=== PATIENT | male | born 1955 ===

== ENCOUNTER 2018-09-10 10:22 | Emergency (ER) | payer OTHER ==
[2018-09-10 10:32] VITALS: BMI 25.1
[2018-09-10] MEDS ORDERED: Sodium Chloride 0.9% 1,000 ML IV SCH (11:00)
[2018-09-10 11:20] LABS: BASO # 0.1 K/uL (0.0-0.2); BASO % 0.8 % (0.0-2.0); EOS # 0.4 K/uL (0.0-0.7); EOS % 4.8 % (0.0-4.0); HEMOGLOBIN 16.6 g/dL (12.0-18.0); LYMPH # 2.7 K/uL (1.0-4.3); LYMPH % 31.2 % (20.0-40.0); MEAN CELL VOLUME 89.8 fL (80.0-94.0); MEAN CORPUSCULAR HEMOGLOBIN 30.2 pg (27.0-31.0); MEAN CORPUSCULAR HGB CONC 33.6 g/dL (33.0-37.0); MEAN PLATELET VOLUME 8.5 fL (7.2-11.7); MONO # 0.6 K/uL (0.0-0.8); MONO % 7.1 % (0.0-10.0); NEUT # 4.8 K/uL (1.8-7.0); NEUT % 56.1 % (50.0-75.0); NRBC % 0.1 % (0.0-2.0); RBC 5.5 Mil/uL (4.40-5.90); RED CELL DISTRIBUTION WIDTH 13.9 % (11.5-14.5); WHITE BLOOD COUNT 8.5 K/uL (4.8-10.8)
[2018-09-10] MEDS ORDERED: Sodium Chloride 0.9% 1,000 ML ONE ×2 (11:23→11:26)
[2018-09-10 11:36] LABS: ALB/GLOB RATIO 1.5 (1.0-2.1); ALBUMIN 4.2 g/dL (3.5-5.0); ALT/SGPT 23 U/L (21-72); AST/SGOT 16 U/L (17-59); BLOOD UREA NITROGEN 17 mg/dL (9-20); CALCIUM 9.8 mg/dl (8.6-10.4); GFR NON-AFRICAN AMERICAN > 60; LIPASE 70 U/L (23-300)
[2018-09-10] MEDS ORDERED: Iodixanol 320 MG/ML 100 ML BOTTLE IV ONE (12:01)
[2018-09-10 12:49] VITALS: RESP 17; O2SAT 97
--- NOTE | 2018-09-10 13:22 | CT ---
Date of service: 09/10/2018 PROCEDURE: CT Abdomen and Pelvis with contrast HISTORY: R groin pain with h/o hernia repair - r/o obs. COMPARISON: None. TECHNIQUE: Contrast dose: 100 mL Visipaque 320 Radiation dose: Total exam DLP = 597.35 mGy-cm. This CT exam was performed using one or more of the following dose reduction techniques: Automated exposure control, adjustment of the mA and/or kV according to patient size, and/or use of iterative reconstruction technique. FINDINGS: LOWER THORAX: Unremarkable. LIVER: Mild hepatic steatosis. 7 mm right hepatic lobe cyst. No gross lesion or ductal dilatation. GALLBLADDER AND BILE DUCTS: Unremarkable. PANCREAS: Unremarkable. No gross lesion or ductal dilatation. SPLEEN: Unremarkable. ADRENALS: Unremarkable. No mass. KIDNEYS AND URETERS: 7 mm left interpolar cyst. No hydronephrosis. No solid mass. VASCULATURE: Unremarkable. No aortic aneurysm. Aortic atherosclerotic calcification and mural plaque present. BOWEL: Colonic diverticulosis. No obstruction. No gross mural thickening. APPENDIX: Normal appendix. PERITONEUM: Nonspecific inflammatory change adjacent to origin of right inguinal hernia sac. Large fat and nonobstructed bowel containing right inguinal hernia. Tiny fat and nonobstructive bowel containing umbilical hernia. No free fluid. No free air. LYMPH NODES: Unremarkable. No enlarged lymph nodes. BLADDER: Unremarkable. REPRODUCTIVE: Unremarkable. BONES: No acute fracture. L5-S1 degenerative changes. OTHER FINDINGS: None. IMPRESSION: Large fat and nonobstructive bowel containing right inguinal hernia. Nonspecific inflammatory changes adjacent to origin of right inguinal hernia sac. Tiny fat and nonobstructed bowel containing umbilical hernia. Additional findings as above.
[2018-09-10 14:04] VITALS: BP 148/92; PULSE 73; TEMP 98.6
--- NOTE | 2018-09-10 14:23 | C.PDOC ---
History Of Present Illness 63 y/o male with history of Hernia repair 10 years ago in [place] presents to ED with c/o right hernial groin bulge for 6 months. Patient denies fever, chills, vomiting, blood in stool or any other complaints at this time. Chief Complaint (Nursing): Groin Pain History Per: Patient History/Exam Limitations: no limitations Onset/Duration Of Symptoms: Days Current Symptoms Are (Timing): Still Present Past Medical History Reviewed: Historical Data, Nursing Documentation, Vital Signs Vital Signs: Last Vital Signs Temp 98.6 F 09/10/18 14:03 Pulse 73 09/10/18 14:03 Resp 17 09/10/18 14:03 BP 148/92 H 09/10/18 14:03 Pulse Ox 97 09/10/18 14:03 - Medical History PMH: No Chronic Diseases Surgical History: No Surg Hx Family History: States: No Known Family Hx - Social History Hx Alcohol Use: No Hx Substance Use: No - Immunization History Hx Tetanus Toxoid Vaccination: No Hx Influenza Vaccination: No Hx Pneumococcal Vaccination: No Review Of Systems Constitutional: Negative for: Fever, Chills Gastrointestinal: Negative for: Nausea, Vomiting, Abdominal Pain, Hematochezia Genitourinary: Positive for: Other (groin hernia ). Negative for: Dysuria Skin: Negative for: Rash Physical Exam - Physical Exam Appears: Non-toxic, No Acute Distress Skin: Warm, Dry, No Rash Head: Atraumatic, Normacephalic Eye(s): bilateral: Normal Inspection Oral Mucosa: Moist Neck: Supple Cardiovascular: Rhythm Regular Respiratory: Normal Breath Sounds, No Rales, No Rhonchi, No Wheezing Gastrointestinal/Abdominal: Bowel Sounds, Soft, No Tenderness, No Guarding, No Rebound Back: No CVA Tenderness Male Genital: Other (Right inguinal hernia) Neurological/Psych: Oriented x3, Normal Speech, Normal Cognition ED Course And Treatment - Laboratory Results Result Diagrams: 09/10/18 11:17 09/10/18 11:17 O2 Sat by Pulse Oximetry: 97 (RA) Pulse Ox Interpretation: Normal Disposition - Disposition Referrals: [facility] [Outside] [facility] [Outside] Disposition: HOME/ ROUTINE Disposition Time: 13:25 Condition: GOOD Additional Instructions: SUSHMA TREJO, thank you for letting us take care of you today. Your provider was Duane Howard DO and you were treated for HERNIA. The emergency medical care you received today was directed at your acute symptoms. If you were prescribed any medication, please fill it and take as directed. It may take several days for your symptoms to resolve. Return to the Emergency Department if your symptoms worsen, do not improve, or if you have any other problems. Please contact your doctor or call one of the physicians/clinics you have been referred to that are listed on the Patient Visit Information form that is included in your discharge packet. Bring any paperwork you were given at discharge with you along with any medications you are taking to your follow up visit. Our treatment cannot replace ongoing medical care by a primary care provider outside of the emergency department. Thank you for allowing the [facility] team to be part of your care today. Take medication for pain as directed. Use scrotal support while awake. Follow up with the clinic this week for re-evaluation and further management. Prescriptions: Ibuprofen [Motrin] 600 mg PO Q6 PRN #20 tab PRN Reason: Pain, Moderate (4-7) Instructions: Groin Hernia (DC) Forms: [facility] (Romansh) - Clinical Impression Clinical Impression: Inguinal hernia - Scribe Statement The provider has reviewed the documentation as recorded by the Scribe Paul Pollack All medical record entries made by the Scribe were at my direction and personally dictated by me. I have reviewed the chart and agree that the record accurately reflects my personal performance of the history, physical exam, medical decision making, and the department course for this patient. I have also personally directed, reviewed, and agree with the discharge instructions and disposition.
== END 2018-09-10 14:04 | disposition home or self-care (01) ==
LOC: C.ER 10:22
DX: K40.90 Unilateral inguinal hernia, without obstruction or gangrene, not specified as recurrent (principal)
CPT/HCPCS: 74177; 80053; 83690; 85025; 96360; 96361; 99285; J7030; Q9967

== ENCOUNTER 2018-09-16 22:22 | Emergency (ER) | payer OTHER ==
[2018-09-16 22:24] VITALS: BMI 25.1
[2018-09-16] MEDS ORDERED: DiphenhydrAMINE 50 mg/ml Inj ONE (22:40)
[2018-09-16] MEDS ORDERED: DiphenhydrAMINE 50 mg/ml Inj IVP STA (22:48)
[2018-09-16] MEDS ORDERED: MethylPREDNISolone 40 mg Vial IVP STA (22:48)
--- NOTE | 2018-09-17 00:08 | C.PDOC ---
History Of Present Illness 63 year old male presents to the ED c/o itchy rash that started a few hours ago. Patient reports he ate shrimp today at 15:00 after which the symptoms started. Patient reports he tried drinking some milk but symptoms did not resolve. Patient denies similar reactions in the past, new medications, difficulty breathing, difficulty swallowing, lip swelling, tongue swelling. Time Seen by Provider: 09/16/18 22:35 Chief Complaint (Nursing): Allergic Reaction History Per: Patient History/Exam Limitations: no limitations Onset/Duration Of Symptoms: Hrs (15:00) Current Symptoms Are (Timing): Still Present Context: Food Possible Cause: Food Associated Symptoms: Skin Rash Home/EMS Treatment: Other (Milk) Recent travel outside of the [place]: No Additional History Per: Patient Past Medical History Reviewed: Historical Data, Nursing Documentation, Vital Signs Vital Signs: Last Vital Signs Temp 97.6 F 09/16/18 22:36 Pulse 93 H 09/16/18 22:36 Resp 22 09/16/18 22:36 BP 151/99 H 09/16/18 22:36 Pulse Ox 96 09/16/18 22:36 - Medical History Other PMH: hernia Surgical History: No Surg Hx Family History: States: Unknown Family Hx - Social History Hx Alcohol Use: No Hx Substance Use: No - Immunization History Hx Tetanus Toxoid Vaccination: No Hx Influenza Vaccination: No Hx Pneumococcal Vaccination: No Review Of Systems Constitutional: Negative for: Fever, Chills ENT: Negative for: Nose Discharge, Nose Congestion, Mouth Swelling, Throat Swelling Cardiovascular: Negative for: Chest Pain Respiratory: Negative for: Cough, Shortness of Breath Gastrointestinal: Negative for: Nausea, Vomiting Skin: Positive for: Rash Physical Exam - Physical Exam Appears: Non-toxic, No Acute Distress Skin: Warm, Dry, Rash (diffuse urticaria) Head: Atraumatic, Normacephalic Eye(s): bilateral: Normal Inspection, EOMI Oral Mucosa: Moist Tongue: No Swelling Lips: No Swelling Throat: Normal, No Erythema, No Exudate Neck: Normal ROM, Supple Chest: Symmetrical Cardiovascular: Rhythm Regular Respiratory: Normal Breath Sounds, No Rales, No Rhonchi, No Wheezing Extremity: Normal ROM, No Tenderness, No Swelling Neurological/Psych: Oriented x3, Normal Speech, Normal Cognition Gait: Steady ED Course And Treatment O2 Sat by Pulse Oximetry: 96 (ON RA) Pulse Ox Interpretation: Normal Progress Note: Plan: - Benadryl 50 mg IVP. - Pepcid 20 mg IVP. - Solumderol 125 mg IVP. On re-evaluation, pt notes the rash improves but has not resolved. Requests to stay until his next dose of benadryl as he does not have any at home. Benadryl 50 mg ordered. On re-evaluation, Patient is resting comfortably, tolerating PO, has no shortness of breath, has no intra-oral swelling, no stridor. RAsh has improved. Patient was advised to avoid potential allergens, and to follow up with physician in 1-2 days. Disposition - Disposition Disposition: HOME/ ROUTINE Disposition Time: 00:05 Condition: STABLE Additional Instructions: Vaya a gorman mdico o la clnica en 2-5 krishna sin falta, para mas evaluacin. [place] los medicamentos chelsea indicado. Volver a la arvin de emergencia en cualquier momento si los sntomas persisten o empeoran. Prescriptions: DiphenhydrAMINE [Benadryl] 25 mg PO Q6 #20 cap predniSONE [Prednisone] 40 mg PO DAILY #8 tab Instructions: Hives (DC) Forms: [employer] (Vietnamese) Print Language: MAORI - Clinical Impression Clinical Impression: Urticaria - PA / MATERIAL CLERK / Resident Statement MD/DO has reviewed & agrees with the documentation as recorded. - Scribe Statement The provider has reviewed the documentation as recorded by the Scribe Akin Pennington All medical record entries made by the Scribe were at my direction and personally dictated by me. I have reviewed the chart and agree that the record accurately reflects my personal performance of the history, physical exam, medical decision making, and the department course for this patient. I have also personally directed, reviewed, and agree with the discharge instructions and disposition.
[2018-09-17] MEDS ORDERED: Sodium Chloride 0.9% 1,000 ML IV ONE (00:48)
[2018-09-17] MEDS ORDERED: DiphenhydrAMINE 50 mg/ml Inj IVP STA (02:03)
[2018-09-17] MEDS ORDERED: DiphenhydrAMINE 50 mg/ml Inj ONE (02:16)
[2018-09-17 04:41] VITALS: BP 130/84; PULSE 71; RESP 18; TEMP 97.7
[2018-09-17 06:56] VITALS: O2SAT 96
== END 2018-09-17 04:45 | disposition home or self-care (01) ==
LOC: C.ER 22:22
DX: L50.9 Urticaria, unspecified (principal)
CPT/HCPCS: 96361; 96374; 96375; 96376; 99285; J1200; J2920; J7030

== ENCOUNTER 2018-11-22 11:22 | Inpatient (IN) | payer OTHER ==
[2018-11-22 11:48] VITALS: BMI 25.8
--- NOTE | 2018-11-22 12:28 | C.PDOC ---
History Of Present Illness SUICIDAL, DEPRESSION WORSENING. HO ETOH, COCAINE ABUSE LAST USE 1-2 DAYS AGO. STATES PT IS STEALING AND NOW AT RISK FOR EVICTION. EXAM NAD PSYCH CALM COOPERATIVE +SI, DEPRESSION. NO ACUTE INTOX, PSYCHOSIS REMAINDER NEG <Bisi Curtis - Last Filed: 11/22/18 12:49> <Bisi Curtis - Last Filed: 11/22/18 12:49> <Marissa Larson - Last Filed: 11/22/18 14:19> Time Seen by Provider: 11/22/18 12:04 Chief Complaint (Nursing): Psychiatric Evaluation Past Medical History Vital Signs: Last Vital Signs Temp 98.0 F 11/22/18 11:48 Pulse 87 11/22/18 11:48 Resp 18 11/22/18 11:48 BP 153/99 H 11/22/18 11:48 Pulse Ox 96 11/22/18 11:48 - Medical History PMH: Arthritis, Back Problems, Gastritis Family History: States: Unknown Family Hx - Social History Hx Alcohol Use: Yes Hx Substance Use: Yes - Immunization History Hx Tetanus Toxoid Vaccination: No Hx Influenza Vaccination: No Hx Pneumococcal Vaccination: No <Bisi Curtis - Last Filed: 11/22/18 12:49> Vital Signs: Last Vital Signs Temp 98.0 F 11/22/18 11:48 Pulse 87 11/22/18 11:48 Resp 18 11/22/18 11:48 BP 153/99 H 11/22/18 11:48 Pulse Ox 96 11/22/18 12:50 <Marissa Larson - Last Filed: 11/22/18 14:19> ED Course And Treatment O2 Sat by Pulse Oximetry: 96 <Bisi Curtis - Last Filed: 11/22/18 12:49> - Laboratory Results Result Diagrams: 11/22/18 12:46 11/22/18 12:46 Lab Results: Total Bilirubin 0.3 mg/dL (0.2-1.3) 11/22/18 12:46 AST 25 U/L (17-59) 11/22/18 12:46 ALT 27 U/L (21-72) 11/22/18 12:46 Alkaline Phosphatase 79 U/L (38-126) 11/22/18 12:46 Total Protein 7.1 g/dL (6.3-8.3) 11/22/18 12:46 Albumin 4.4 g/dL (3.5-5.0) 11/22/18 12:46 Globulin 2.6 gm/dL (2.2-3.9) 11/22/18 12:46 Albumin/Globulin Ratio 1.7 (1.0-2.1) 11/22/18 12:46 Urine Color Yellow (YELLOW) 11/22/18 12:46 Urine Clarity Hazy (Clear) 11/22/18 12:46 Urine pH 7.0 (5.0-8.0) 11/22/18 12:46 Ur Specific [place] 1.019 (1.003-1.030) 11/22/18 12:46 Urine Protein Negative mg/dL (NEGATIVE) 11/22/18 12:46 Urine Glucose (UA) Normal mg/dL (Normal) 11/22/18 12:46 Urine Ketones Negative mg/dL (NEGATIVE) 11/22/18 12:46 Urine Blood Negative (NEGATIVE) 11/22/18 12:46 Urine Nitrate Negative (NEGATIVE) 11/22/18 12:46 Urine Bilirubin Negative (NEGATIVE) 11/22/18 12:46 Urine Urobilinogen Normal mg/dL (0.2-1.0) 11/22/18 12:46 Ur Leukocyte Esterase Neg Cem/uL (Negative) 11/22/18 12:46 Urine WBC (Auto) 4 /hpf (0-5) 11/22/18 12:46 Amorphous Sediment Moderate /ul (<OCC) H 11/22/18 12:46 Urine Bacteria Rare (<OCC) 11/22/18 12:46 <Marissa Larson - Last Filed: 11/22/18 14:19> Progress - Re-Evaluation Re-evaluation Note: 11/22/18 12:49 CRISIS NOTIFIED - Data Reviewed Data Reviewed: Lab, Old records <Bisi Curtis - Last Filed: 11/22/18 12:49> Medical Decision Making 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 Alcaraz. <Marissa Larson - Last Filed: 11/22/18 14:19> Disposition Counseled Patient/Family Regarding: Diagnosis - Disposition Disposition Time: 13:00 <Bisi Curtis - Last Filed: 11/22/18 12:49> - Disposition Disposition Time: 14:17 <Marissa Larson - Last Filed: 11/22/18 14:19> - Disposition Condition: STABLE Forms: [facility] (Kyrgyz) - Clinical Impression Clinical Impression: Polysubstance abuse, Suicidal ideation, Depression, Anxiety Physician Patient Turnover Patient Signed Over To: Marissa Larson Handoff Comments: FU LABS, DISPO <Bisi Curtis - Last Filed: 11/22/18 12:49>
[2018-11-22 12:56] LABS: BASO # 0.1 K/uL (0.0-0.2); BASO % 1.5 % (0.0-2.0); EOS # 0.3 K/uL (0.0-0.7); EOS % 2.7 % (0.0-4.0); HEMOGLOBIN 16.1 g/dL (12.0-18.0); LYMPH # 1.9 K/uL (1.0-4.3); LYMPH % 20.1 % (20.0-40.0); MEAN CELL VOLUME 91.7 fL (80.0-94.0); MEAN CORPUSCULAR HEMOGLOBIN 30.9 pg (27.0-31.0); MEAN CORPUSCULAR HGB CONC 33.7 g/dL (33.0-37.0); MEAN PLATELET VOLUME 8.5 fL (7.2-11.7); MONO # 0.7 K/uL (0.0-0.8); MONO % 7.2 % (0.0-10.0); NEUT # 6.4 K/uL (1.8-7.0); NEUT % 68.5 % (50.0-75.0); NRBC % 0.1 % (0.0-2.0); RBC 5.21 Mil/uL (4.40-5.90); RED CELL DISTRIBUTION WIDTH 14.5 % (11.5-14.5); WHITE BLOOD COUNT 9.3 K/uL (4.8-10.8)
[2018-11-22 13:02] LABS: URINE AMORPHOUS SEDIMENT MODERATE /ul (<OCC); URINE BACTERIA RARE (<OCC); URINE BILIRUBIN NEGATIVE (NEGATIVE); URINE BLOOD NEGATIVE (NEGATIVE); URINE CLARITY Hazy (Clear); URINE COLOR Yellow (YELLOW); URINE GLUCOSE (UA) NORMAL (Normal); URINE LEUKOCYTE ESTERASE NEG Leu/uL (Negative); URINE PROTEIN NEGATIVE (NEGATIVE); URINE UROBILINOGEN NORMAL mg/dL (0.2-1.0)
[2018-11-22 13:31] LABS: ALB/GLOB RATIO 1.7 (1.0-2.1); ALBUMIN 4.4 g/dL (3.5-5.0); ALT/SGPT 27 U/L (21-72); AST/SGOT 25 U/L (17-59); BLOOD UREA NITROGEN 13 mg/dL (9-20); CALCIUM 9.3 mg/dl (8.6-10.4); GFR NON-AFRICAN AMERICAN > 60
[2018-11-22 13:41] LABS: BARBITURATES, UR NEGATIVE (NEGATIVE); BENZODIAZEPINES, UR NEGATIVE (NEGATIVE); OPIATES, UR NEGATIVE (NEGATIVE); PHENCYCLIDINE, UR NEGATIVE (NEGATIVE)
--- NOTE | 2018-11-22 20:52 | PCM.BM ---
<Raymond Real - Last Filed: 11/22/18 20:50> Treatment Plan Problems - Problems identified on initial assessmt Depression Date Initiated: 11/22/18 Time Initiated: 20:50 Assessment reference: NA Status: Active Substance Date Initiated: 11/22/18 Time Initiated: 20:51 Assessment reference: NA Status: Active Treatment assets and liabiliti Patient Assests: cooperative, self-reliant, ADL independent, negotiates basic needs, financial stabiity, cognitively intact Patient Liabilities: substance abuse (Alcohol and cocaine abuse), medical problems (Gastritis, Hernia), other - Milieu Protocol Maintain good personal hygiene: daily Encourage regular showers, daily Remind patient to perform daily oral care, every shift Assist patient to perform ADL's Conduct patient checks and document Observation sheet: Q15 minutes (For safety) Maintain personal safety: every shift Educate patient to report safety concerns to staff, every shift Monitor environment for contraband/sharps Medication safety: Monitor for expected outcome, potential side effects: every shift, Assess barriers to learning: every shift, Assess readiness for medication education: every shift <Shagufta Hansen - Last Filed: 11/23/18 12:05> Family Contact Family involvement: Family/SO is involved Family contact: Patient declines to allow family contact at present - Goals for Treatment Patient goals for treatment: "I need treatment" Discharge/Continuing Care - Education Needs Education Needs: Patient Medication, Patient Coping Skills - Discharge Discharge Criteria: Tolerates medication w/o severe side effects, No longer exhibiting s/s of withdrawal Discharge to:: Home, With Family - Treatment Team Participation Discussed with Family/SO: No Was Patient/Family/SO present at Treatment Team Meeting: Yes <Tita Alcaraz - Last Filed: 11/27/18 15:05> - Diagnosis (1) Depression Status: Acute Interventions: 11/27/18 15:03 * Assess/adjust medications daily and /or as needed * See patient on an individual basis 7x/week to assess symptoms of depression * Monitor for side effects & effectiveness of medications * (2) Cocaine use disorder, severe, dependence Status: Acute Interventions: 11/27/18 15:05 * Assess 7x/week regarding severity of withdrawal * Educate regarding risks, benefits, side effects and alternatives of medications * Use Motivational Interviewing for abstinence * Use CBT for relapse prevention * Medication management for withdrawal symptoms * Encourage medication assisted treatment *
--- NOTE | 2018-11-23 10:59 | PCM.PSYCH ---
Initial Psychiatric Evaluation - Initial Psychiatric Evaluation Type of Admission: Voluntary Legal Status: Capacity Chief Complaint (in patient's own words): I was feeling depressed and suicidal History of Present Illness and Precipitating Events: 63 year old male, who is , unemployed and living with his , presents to the ED for depressed mood and suicidal thoughts with plan to "jump into a hole". Pt states he came to the hospital because he was becoming increasingly depressed from his drinking problem. Pt states he recently retired from work and is at home more often. Pt states since he is home more often, he often fights with his who also has a psychiatric illness. Pt states he starting drinking more due to these stressors at home and has ultimately led to exacerbation of his depressive symptoms. Yesterday he developed suicidal ideation with plan to jump into the hole, became increasingly concerned, and escorted him to the hospital to get help. Pt states that he has been drinking about 6, 12oz beers a day and has used a small amount of cocaine recently. Pt reports having a history of inpatient psychiatric hospitalizations in the early in [facility], but has not followed up with a psychiatrist for many years. Pt reports having two suicide attempts in the and early , via cutting. Pt states his depression is worse when drinking and that he wants help. Pt reports having alcohol withdrawal symptoms 3 days ago, consisting of nausea, vomiting, sweating, and chills, but does not report any of those symptoms currently. Pt reports depressed mood, and reports feelings of hopelessness and helplessness. He also reports poor energy, isolation, anhedonia. However he denies any auditory or visual hallucinations or any paranoia. He denies any irritability or any agitation. Past Psychiatric Hx: Depression, Alcohol Abuse, cocaine abuse PMH: GI Ulcers, 3 Hernias (x2 inguinal, x1 ventral), chronic back pain Allergies: seafood, denies allergy to any medications Current Medications: Active Medications Generic Name Dose Route Start Last Admin Trade Name Freq PRN Reason Stop Dose Admin Acetaminophen 650 mg 11/22/18 20:59 Tylenol 325mg Tab PO Q6 PRN Pain, moderate (4-7) Influenza Virus Vaccine 60 mcg 11/25/18 10:00 Flucelvax Quad 4400-1848 Syr IM 11/25/18 10:01 .ONCE ONE Lorazepam 0.5 mg 11/22/18 20:59 Ativan PO Q8 PRN Anxiety Pneumococcal Polyvalent Vaccine 0.5 ml 11/25/18 10:00 Pneumovax 23 Vaccine IM 11/25/18 10:01 .ONCE ONE Sertraline HCl 25 mg 11/23/18 10:00 11/23/18 10:05 Zoloft PO 25 mg DAILY CRISTHIAN Administration Trazodone HCl 50 mg 11/22/18 20:59 11/22/18 21:35 Desyrel PO 50 mg HS PRN Administration Insomnia Past Psychiatric History - Past Psychiatric History Previous Treatment History: None Pertinent Medical Hx (Current Medical&Sleep Prob, Allergies): Allergies Allergy/AdvReac Type Severity Reaction Status Date / Time No Known Allergies Allergy Verified 11/22/18 11:48 No Known Home Med 11/22/18 Review of Systems - Review of Systems All systems: reviewed and no additional remarkable complaints except - Psychiatric Psychiatric: Anxiety, Irritability, Suicidal Ideation Mental Status Examination - Personal Presentation Personal Presentation: Looks stated age - Affect Affect: Constricted, Depressed - Motor Activity Motor Activity: Calm - Reliability in Providing Information Reliability in Providing Information: Fair - Speech Speech: Organized - Mood Mood: Depressed, Anxious - Formal Thought Process Formal Thought Process: No Impairment - Obsessions/Compulsions Obsessions: No Compulsions: No - Cognitive Functions Orientation: Person, Place, Situation, Time Sensorium: Alert Attention/Concentration: Attentive Abstract Thinking: [place] Estimate of Intelligence: Below average Judgement: Imparied, as evidence by: Poor judgement, Imparied, as evidence by: Lack of insight into illness - Risk Risk: Diminished functioning - Strength & Assets Inventory Strength & Assets Inventory: Family support DSM 5 DX - DSM 5 DSM 5 Diagnosis: Major depressive disorder recurrent severe without psychotic features Alcohol use disorder severe Alcohol withdrawal Cocaine use disorder moderate - Recommended/Plan of Treatment Treatment Recommendations and Plan of Treatment: Major depressive disorder recurrent severe without psychotic features Alcohol use disorder severe Alcohol withdrawal Cocaine use disorder moderate CBT Psychoeducation Supportive therapy, group therapy, individual therapy Trazodone 50 mg p.o. nightly Ativan 0.5 mg p.o. every 6 hours as needed for alcohol withdrawal Zoloft 25 mg p.o. daily Neurontin 100 mg p.o. 3 times daily - Smoking Cessation Smoking Cessation Initiated: No
[2018-11-24] MEDS: Pantoprazole 20 mg EC Tab PO SCH (13:14)
[2018-11-25] MEDS ORDERED: Pneumococcal 23-Valent Vaccine IM ONE (10:00)
[2018-11-25] MEDS ORDERED: Influenza Vaccine 60 mcg/0.5 mL SYR (4YR UP) IM ONE (10:00)
[2018-11-25] MEDS: Pantoprazole 20 mg EC Tab PO SCH (10:06)
--- NOTE | 2018-11-25 23:17 | PCM.PYCHPN ---
Psychiatric Progress Note - Psychiatric Progress Note Patient seen today, length of contact: 15 min Patient Chief Complaint: "Better" Problems Identified/Issues Discussed: The pt is seen, chart reviewed, case is discussed with staff. The pt is compliant with medications and reports no side-effects. Symptoms are improving but needs more time to stabilize and to avoid relapse. Pt attends groups and activities. Support given, psycho-education provided. After care discussed. Medication Change: No Medical Record Reviewed: Yes Mental Status Examination - Cognitive Function Orientation: Person, Place, Situation, Time Memory: Impaired Attention: WNL Concentration: Poor Association: WNL Fund of Knowledge: WNL - Mood Mood: Depressed, Anxious - Affect Affect: Constricted, Depressed - Speech Speech: Appropriate - Formal Thought Process Formal Thought Process: No Impairment - Suicidal Ideation Suicidal Ideation: No - Homicidal Ideation Homicidal Ideation: No Goal/Treatment Plan - Goal/Treatment Plan Need for Continued Stay: Discharge may exacerbated symptoms, Severe functional impairment Progress Toward Problem(s) and Goals/Treatment Plan: Continue medications Support and psychoeducation daily Attend groups and activities daily Individual therapy After care planning by RODERICK and the team
[2018-11-26] MEDS: Pantoprazole 20 mg EC Tab PO SCH (09:56)
--- NOTE | 2018-11-26 23:58 | PCM.PYCHPN ---
Psychiatric Progress Note - Psychiatric Progress Note Patient seen today, length of contact: 15 min Patient Chief Complaint: I m feeling depressed.' Problems Identified/Issues Discussed: Patient was seen and evaluated, chart reviewed and discussed with the staff. As per staff patient remained depressed, withdrawn and confined to his room. He still reports depressed mood and at times feelings of hopelessness and helplessness. He remained isolative and withdrawn. He still reports poor sleep and poor appetite. He is taking medication denies any side effects. Symptoms are improving but he needs to stay longer for further stabilization. Supportive therapy was given Medication Change: Yes Medical Record Reviewed: Yes Mental Status Examination - Cognitive Function Orientation: Person, Place, Situation, Time Memory: Intact Attention: WNL Concentration: Poor Association: WNL Fund of Knowledge: Poor - Mood Mood: Depressed, Anxious - Affect Affect: Constricted, Depressed - Speech Speech: Soft - Formal Thought Process Formal Thought Process: No Impairment - Suicidal Ideation Suicidal Ideation: No - Homicidal Ideation Homicidal Ideation: No Goal/Treatment Plan - Goal/Treatment Plan Need for Continued Stay: Severe depression anxiety, Severe functional impairment Progress Toward Problem(s) and Goals/Treatment Plan: Major depressive disorder recurrent severe without psychotic features Alcohol use disorder severe Alcohol withdrawal Cocaine use disorder moderate CBT Psychoeducation Supportive therapy, group therapy, individual therapy Trazodone 50 mg p.o. nightly Ativan 0.5 mg p.o. every 6 hours as needed for alcohol withdrawal Zoloft 25 mg p.o. daily Neurontin 100 mg p.o. 3 times daily - Smoking Cessation Smoking Cessation Initiated: No
[2018-11-27] MEDS: Pantoprazole 20 mg EC Tab PO SCH (09:48)
--- NOTE | 2018-11-27 15:08 | PCM.PYCHPN ---
Psychiatric Progress Note - Psychiatric Progress Note Patient seen today, length of contact: 15 min Patient Chief Complaint: I m feeling depressed.' Problems Identified/Issues Discussed: Patient was seen and evaluated, chart reviewed and discussed with the staff. As per staff patient remained depressed, withdrawn and confined to his room. He still reports depressed mood and at times feelings of hopelessness and helplessness. He remained isolative and withdrawn. He still reports poor sleep and poor appetite. He is taking medication denies any side effects. Symptoms are improving but he needs to stay longer for further stabilization. Supportive therapy was given Medication Change: Yes Medical Record Reviewed: Yes Mental Status Examination - Cognitive Function Orientation: Person, Place, Situation, Time Memory: Intact Attention: WNL Concentration: Poor Association: WNL Fund of Knowledge: Poor - Mood Mood: Depressed, Anxious - Affect Affect: Constricted, Depressed - Speech Speech: Soft - Formal Thought Process Formal Thought Process: No Impairment - Suicidal Ideation Suicidal Ideation: No - Homicidal Ideation Homicidal Ideation: No Goal/Treatment Plan - Goal/Treatment Plan Need for Continued Stay: Severe depression anxiety, Severe functional impairment Progress Toward Problem(s) and Goals/Treatment Plan: Major depressive disorder recurrent severe without psychotic features Alcohol use disorder severe Alcohol withdrawal Cocaine use disorder moderate CBT Psychoeducation Supportive therapy, group therapy, individual therapy Trazodone 100 mg p.o. nightly Ativan 0.5 mg p.o. every 6 hours as needed for alcohol withdrawal Zoloft 50 mg p.o. daily Neurontin 100 mg p.o. 3 times daily
[2018-11-28] MEDS: Pantoprazole 20 mg EC Tab PO SCH (09:48)
--- NOTE | 2018-11-28 12:49 | PCM.PYCHPN ---
Psychiatric Progress Note - Psychiatric Progress Note Patient seen today, length of contact: 15 min Patient Chief Complaint: I m feeling depressed.' Problems Identified/Issues Discussed: Patient was seen and evaluated, chart reviewed and discussed with the staff. As per staff patient remained depressed, withdrawn and confined to his room. He still reports depressed mood and at times feelings of hopelessness and helplessness. He remained isolative and withdrawn. He still reports poor sleep and poor appetite. He is taking medication denies any side effects. Symptoms are improving but he needs to stay longer for further stabilization. Supportive therapy was given Medication Change: No Medical Record Reviewed: Yes Mental Status Examination - Cognitive Function Orientation: Person, Place, Situation, Time Memory: Impaired Attention: WNL Concentration: Poor Association: WNL Fund of Knowledge: WNL - Mood Mood: Depressed, Anxious - Affect Affect: Constricted, Depressed - Speech Speech: Appropriate - Formal Thought Process Formal Thought Process: No Impairment - Suicidal Ideation Suicidal Ideation: No - Homicidal Ideation Homicidal Ideation: No Goal/Treatment Plan - Goal/Treatment Plan Need for Continued Stay: Discharge may exacerbated symptoms, Severe functional impairment Progress Toward Problem(s) and Goals/Treatment Plan: Major depressive disorder recurrent severe without psychotic features Alcohol use disorder severe Alcohol withdrawal Cocaine use disorder moderate CBT Psychoeducation Supportive therapy, group therapy, individual therapy Trazodone 100 mg p.o. nightly Ativan 0.5 mg p.o. every 6 hours as needed for alcohol withdrawal Zoloft 50 mg p.o. daily Neurontin 100 mg p.o. 3 times daily
[2018-11-29] MEDS: Pantoprazole 20 mg EC Tab PO SCH (10:01)
--- NOTE | 2018-11-30 09:18 | PCM.BM ---
<JoeShagufta Chavez - Last Filed: 11/30/18 09:18> Treatment Plan Problems - Problems identified on initial assessmt Depression Date Initiated: 11/22/18 Time Initiated: 20:50 Assessment reference: NA Status: Active Substance Date Initiated: 11/22/18 Time Initiated: 20:51 Assessment reference: NA Status: Active Treatment assets and liabiliti Patient Assests: cooperative, self-reliant, ADL independent, negotiates basic needs, financial stabiity, cognitively intact Patient Liabilities: substance abuse (Alcohol and cocaine abuse), medical problems (Gastritis, Hernia), other - Milieu Protocol Maintain good personal hygiene: daily Encourage regular showers, daily Remind patient to perform daily oral care, every shift Assist patient to perform ADL's Conduct patient checks and document Observation sheet: Q15 minutes (For safety) Maintain personal safety: every shift Educate patient to report safety concerns to staff, every shift Monitor environment for contraband/sharps Medication safety: Monitor for expected outcome, potential side effects: every shift, Assess barriers to learning: every shift, Assess readiness for medication education: every shift Milieu Narrative: Major depressive disorder recurrent severe without psychotic features Alcohol use disorder severe Alcohol withdrawal Cocaine use disorder moderate CBT Psychoeducation Supportive therapy, group therapy, individual therapy Trazodone 100 mg p.o. nightly Ativan 0.5 mg p.o. every 6 hours as needed for alcohol withdrawal Zoloft 50 mg p.o. daily Neurontin 100 mg p.o. 3 times daily Family Contact Family involvement: Family/SO is involved Family contact: Patient declines to allow family contact at present - Goals for Treatment Patient goals for treatment: "I need treatment" Discharge/Continuing Care - Education Needs Education Needs: Patient Medication, Patient Coping Skills - Discharge Discharge Criteria: Tolerates medication w/o severe side effects, No longer exhibiting s/s of withdrawal Discharge to:: Home, With Family - Treatment Team Participation Patient/Family/SO Statement: Major depressive disorder recurrent severe without psychotic features Alcohol use disorder severe Alcohol withdrawal Cocaine use disorder moderate CBT Psychoeducation Supportive therapy, group therapy, individual therapy Trazodone 100 mg p.o. nightly Ativan 0.5 mg p.o. every 6 hours as needed for alcohol withdrawal Zoloft 50 mg p.o. daily Neurontin 100 mg p.o. 3 times daily Discussed with Family/SO: No Was Patient/Family/SO present at Treatment Team Meeting: Yes Treatment Plan Review - Problem Depression Time Initiated: 20:50 Substance Time Initiated: 20:51 - Discharge / Continuing Care Discharge to:: Home, With Family Behavioral Health Services: Outpatient therapy Health Needs: Medications/Rx, Alcohol/Drug treatment <Giovanna Maravilla - Last Filed: 11/30/18 11:01> - Milieu Protocol Maintain good personal hygiene: daily Encourage regular showers, daily Remind patient to perform daily oral care, daily Assist patient to perform ADL's Maintain personal safety: every shift Educate patient to report safety concerns to staff, every shift Monitor environment for contraband/sharps Medication safety: Monitor for expected outcome, potential side effects: every shift, Assess barriers to learning: every shift, Assess readiness for medication education: every shift Treatment Plan Review - Problem Depression Date Initiated: 11/22/18 Time Initiated: 20:51 Progress toward outcomes: improved Substance Date Initiated: 11/22/18 Progress toward outcomes: improved
[2018-11-30] MEDS: Pantoprazole 20 mg EC Tab PO SCH (09:33)
[2018-11-30] MEDS ORDERED: Aluminum Hydroxide/Magnesium Hydroxide Susp (30 mL) PO PRN (17:24)
--- NOTE | 2018-11-30 17:29 | PCM.PYCHPN ---
Psychiatric Progress Note - Psychiatric Progress Note Patient seen today, length of contact: 15 min Patient Chief Complaint: I m feeling little better.' Problems Identified/Issues Discussed: Patient was seen and evaluated, chart reviewed and discussed with the staff. He patient reports some improvement in his mood and reports improvement in the feelings of hopelessness and helplessness. He also reports improvement in the withdrawal symptoms. He remained isolative and withdrawn. Symptoms are improving gradually but he needs to stay longer for further stabilization He is taking medication denies any side effects Supportive therapy was given Medication Change: No Medical Record Reviewed: Yes Mental Status Examination - Cognitive Function Orientation: Person, Place, Situation, Time Memory: Impaired Attention: WNL Concentration: Poor Association: WNL Fund of Knowledge: WNL - Mood Mood: Depressed, Anxious - Affect Affect: Constricted, Depressed - Speech Speech: Appropriate - Formal Thought Process Formal Thought Process: No Impairment - Suicidal Ideation Suicidal Ideation: No - Homicidal Ideation Homicidal Ideation: No Goal/Treatment Plan - Goal/Treatment Plan Need for Continued Stay: Discharge may exacerbated symptoms, Severe functional impairment Progress Toward Problem(s) and Goals/Treatment Plan: Major depressive disorder recurrent severe without psychotic features Alcohol use disorder severe Alcohol withdrawal Cocaine use disorder moderate CBT Psychoeducation Supportive therapy, group therapy, individual therapy Trazodone 100 mg p.o. nightly Ativan 0.5 mg p.o. every 6 hours as needed for alcohol withdrawal Zoloft 150 mg p.o. daily Neurontin 100 mg p.o. 3 times daily
--- NOTE | 2018-12-01 08:03 | PCM.PYCHPN ---
Psychiatric Progress Note - Psychiatric Progress Note Patient seen today, length of contact: 15 min Patient Chief Complaint: I m feeling little better.' Problems Identified/Issues Discussed: Patient was seen and evaluated, chart reviewed and discussed with the staff. As per staff patient is improving. He patient reports some improvement in his mood and reports improvement in the feelings of hopelessness and helplessness. He also reports improvement in the withdrawal symptoms. Symptoms are improving gradually but he needs to stay longer for further stabilization He is taking medication denies any side effects Supportive therapy was given Medication Change: No Medical Record Reviewed: Yes Mental Status Examination - Cognitive Function Orientation: Person, Place, Situation, Time Memory: Impaired Attention: WNL Concentration: Poor Association: WNL Fund of Knowledge: WNL - Mood Mood: Depressed, Anxious - Affect Affect: Constricted, Depressed - Speech Speech: Appropriate - Formal Thought Process Formal Thought Process: No Impairment - Suicidal Ideation Suicidal Ideation: No - Homicidal Ideation Homicidal Ideation: No Goal/Treatment Plan - Goal/Treatment Plan Need for Continued Stay: Discharge may exacerbated symptoms, Severe functional impairment Progress Toward Problem(s) and Goals/Treatment Plan: Major depressive disorder recurrent severe without psychotic features Alcohol use disorder severe Alcohol withdrawal Cocaine use disorder moderate CBT Psychoeducation Supportive therapy, group therapy, individual therapy Trazodone 100 mg p.o. nightly Ativan 0.5 mg p.o. every 6 hours as needed for alcohol withdrawal Zoloft 150 mg p.o. daily Neurontin 100 mg p.o. 3 times daily
[2018-12-01] MEDS: Pantoprazole 20 mg EC Tab PO SCH (09:44)
[2018-12-02 06:38] VITALS: O2SAT 98
[2018-12-02] MEDS: Pantoprazole 20 mg EC Tab PO SCH (09:56)
--- NOTE | 2018-12-03 00:22 | PCM.PYCHPN ---
Psychiatric Progress Note - Psychiatric Progress Note Patient seen today, length of contact: 15 min Patient Chief Complaint: I m feeling better than before.' Problems Identified/Issues Discussed: Patient was seen and evaluated, chart reviewed and discussed with the staff. As per staff patient is improving. He patient reports some improvement in his mood and reports improvement in the feelings of hopelessness and helplessness. He also reports improvement in the withdrawal symptoms. Symptoms are improving gradually but he needs to stay longer for further stabilization He is taking medication denies any side effects Supportive therapy was given Medication Change: No Medical Record Reviewed: Yes Mental Status Examination - Cognitive Function Orientation: Person, Place, Situation, Time Memory: Impaired Attention: WNL Concentration: Poor Association: WNL Fund of Knowledge: WNL - Mood Mood: Depressed, Anxious - Affect Affect: Constricted, Depressed - Speech Speech: Appropriate - Formal Thought Process Formal Thought Process: No Impairment - Suicidal Ideation Suicidal Ideation: No - Homicidal Ideation Homicidal Ideation: No Goal/Treatment Plan - Goal/Treatment Plan Need for Continued Stay: Discharge may exacerbated symptoms, Severe functional impairment Progress Toward Problem(s) and Goals/Treatment Plan: Major depressive disorder recurrent severe without psychotic features Alcohol use disorder severe Alcohol withdrawal Cocaine use disorder moderate CBT Psychoeducation Supportive therapy, group therapy, individual therapy Trazodone 100 mg p.o. nightly Ativan 0.5 mg p.o. every 6 hours as needed for alcohol withdrawal Zoloft 200 mg p.o. daily Neurontin 100 mg p.o. 3 times daily
[2018-12-03 06:19] VITALS: RESP 18
[2018-12-03] MEDS: Pantoprazole 20 mg EC Tab PO SCH (09:39)
--- NOTE | 2018-12-03 14:38 | PCM.PYCHPN ---
Psychiatric Progress Note - Psychiatric Progress Note Patient seen today, length of contact: 15 min Patient Chief Complaint: "I am somewhat better" Problems Identified/Issues Discussed: The pt is seen, chart reviewed, case discussed with staff. Support and psychoeducation given No new symptoms reported, improving slowly and needs more time No SEs from medications, risks discussed. After care discussed Medication Change: Yes (zoloft is 200 mg today) Medical Record Reviewed: Yes Mental Status Examination - Cognitive Function Orientation: Person, Place, Situation, Time Memory: Impaired Attention: WNL Concentration: Poor Association: WNL Fund of Knowledge: WNL - Mood Mood: Depressed, Anxious - Affect Affect: Constricted, Depressed - Speech Speech: Appropriate - Formal Thought Process Formal Thought Process: No Impairment - Suicidal Ideation Suicidal Ideation: No - Homicidal Ideation Homicidal Ideation: No Goal/Treatment Plan - Goal/Treatment Plan Need for Continued Stay: Discharge may exacerbated symptoms, Severe functional impairment Progress Toward Problem(s) and Goals/Treatment Plan: Continue medications Support and psychoeducation daily Attend groups and activities daily Individual therapy After care planning by RODERICK and the team
[2018-12-04] MEDS: Pantoprazole 20 mg EC Tab PO SCH (09:54)
--- NOTE | 2018-12-04 14:16 | PCM.PYCHPN ---
Psychiatric Progress Note - Psychiatric Progress Note Patient seen today, length of contact: 15 min Patient Chief Complaint: I m feeling better.' Problems Identified/Issues Discussed: Patient was seen and evaluated, chart reviewed and discussed with the staff. Patient reports improvement in his mood and reports improvement in the withdrawal symptoms. He denies any auditory hallucinations or any paranoia. Symptoms are improving gradually but he needs to stay longer for further stabilization He is taking medication denies any side effects Supportive therapy was given Medication Change: Yes (zoloft is 200 mg today) Medical Record Reviewed: Yes Mental Status Examination - Cognitive Function Orientation: Person, Place, Situation, Time Memory: Impaired Attention: WNL Concentration: Poor Association: WNL Fund of Knowledge: WNL - Mood Mood: Depressed, Anxious - Affect Affect: Constricted, Depressed - Speech Speech: Appropriate - Formal Thought Process Formal Thought Process: No Impairment - Suicidal Ideation Suicidal Ideation: No - Homicidal Ideation Homicidal Ideation: No Goal/Treatment Plan - Goal/Treatment Plan Need for Continued Stay: Discharge may exacerbated symptoms, Severe functional impairment Progress Toward Problem(s) and Goals/Treatment Plan: Major depressive disorder recurrent severe without psychotic features Alcohol use disorder severe Alcohol withdrawal Cocaine use disorder moderate CBT Psychoeducation Supportive therapy, group therapy, individual therapy Trazodone 100 mg p.o. nightly Ativan 0.5 mg p.o. every 6 hours as needed for alcohol withdrawal Zoloft 200 mg p.o. daily Neurontin 100 mg p.o. 3 times daily
[2018-12-05 06:52] VITALS: BP 114/81; PULSE 59; TEMP 97.8
[2018-12-05] MEDS: Pantoprazole 20 mg EC Tab PO SCH (10:02)
--- NOTE | 2018-12-05 10:26 | PCM.PYCHDC ---
Mental Status Examination - Mental Status Examination Orientation: Person, Place, Situation, Time Memory: Intact Mood: Neutral Affect: Constricted Speech: Soft Attention: WNL Concentration: WNL Association: WNL Fund of Knowledge: WNL Formal Thought Process: No Impairment Description of patient's judgement and insight: good, fair Psychotic Thoughts and Behaviors: denies any AVH Suicidal Ideation: No Current Homicidal Ideation?: No Discharge Summary - Discharge Note Reason for Hospitalization: 63 year old male, who is , unemployed and living with his , presents to the ED for depressed mood and suicidal thoughts with plan to "jump into a hole". Pt states he came to the hospital because he was becoming increasingly depressed from his drinking problem. Pt states he recently retired from work and is at home more often. Pt states since he is home more often, he often fights with his who also has a psychiatric illness. Pt states he starting drinking more due to these stressors at home and has ultimately led to exacerbation of his depressive symptoms. Yesterday he developed suicidal ideation with plan to jump into the hole, became increasingly concerned, and escorted him to the hospital to get help. Pt states that he has been drinking about 6, 12oz beers a day and has used a small amount of cocaine recently. Pt reports having a history of inpatient psychiatric hospitalizations in the early in [facility], [place], but has not followed up with a psychiatrist for many years. Pt reports having two suicide attempts in the s and early 1999s, via cutting. Pt states his depression is worse when drinking and that he wants help. Pt reports having alcohol withdrawal symptoms 3 days ago, consisting of nausea, vomiting, sweating, and chills, but does not report any of those symptoms currently. Pt reports depressed mood, and reports feelings of hopelessness and helplessness. He also reports poor energy, isolation, anhedonia. However he denies any auditory or visual hallucinations or any paranoia. He denies any irritability or any agitation. Consultations:: List each consultation separately and include: 1. Reason for request. 2. Findings. 3. Follow-up Summary of Hospital Course include:: 1. Description of specific treatment plan utilized for patients during their course of treatmen. 2. Summarize the time- course for resolution of acute symptoms and/or regressed behaviors. 3. Describe issues identified and worked on during hospitalization. 4. Describe medication utilized. 5. Describe medical problems identified and treated. 6. Reassessment of suicide risk Summary of Hospital Course: During the course of his stay, patient (pt) started progressively improving and no longer remained irritable, depressed, and suicidal. His mood and anxiety were improved and he started attending groups and meetings and started socializing. Patient denied any feelings of hopelessness, helplessness, and worthlessness, denied any problem with the sleep or appetite, denied suicidal ideation or homicidal ideation. Pt denied any auditory or visual hallucinations. He denied any withdrawal symptoms. Pt was treated with medications along with supportive therapy, milieu therapy an d group therapy. Some changes were made in his current medications and patient was discharged on following medications. He tolerated these medications very well and denied any side effects. - Diagnosis (1) Depression Status: Acute (2) Cocaine use disorder, severe, dependence Status: Acute - Final Diagnosis (DSM 5) Condition upon Discharge: STABLE DSM 5: Major depressive disorder recurrent severe without psychotic features Alcohol use disorder severe Alcohol withdrawal Cocaine use disorder moderate Disposition: HOME/ ROUTINE Follow-up Treatment Plan: Followup: He was discharged to the [facility]. Education: Pt was educated and counseled about the risks and benefits of taking and not taking medications. Pt was educated and counseled about the risks of drinking and abusing drugs. Pt was educated and counseled to go to the ER or call 911 if pt develop suicidal ideation or homicidal ideation, worsening of symptoms or severe side effects of the meds. Prescriptions/Medication Reconciliation: Sertraline [Zoloft] 100 mg PO DAILY #60 tab traZODone [Desyrel] 100 mg PO HS PRN #30 tab PRN Reason: Insomnia - Smoking Cessation Smoking Cessation Medication prescribed: No - Antipsychotic Medications Pt discharged on 2 or more routine antipsychotic medications: No
== END 2018-12-05 11:30 | disposition home or self-care (01) | DRG 751 ==
LOC: C.ER 11:22 → C.5E 14:19
PROVIDERS: ADMIT Psychiatry & Neurology Psychiatry; ATTEND Psychiatry & Neurology Psychiatry
PROC: GZHZZZZ Group Psychotherapy (ICD-10-PCS; principal; 2018-11-22)
PROC: HZ2ZZZZ Detoxification Services for Substance Abuse Treatment (ICD-10-PCS; 2018-11-22)
PROC: HZ42ZZZ Group Counseling for Substance Abuse Treatment, Cognitive-Behavioral (ICD-10-PCS; 2018-11-22)
PROC: HZ52ZZZ Individual Psychotherapy for Substance Abuse Treatment, Cognitive-Behavioral (ICD-10-PCS; 2018-11-22)
PROC: HZ59ZZZ Individual Psychotherapy for Substance Abuse Treatment, Supportive (ICD-10-PCS; 2018-11-22)
PROC: HZ56ZZZ Individual Psychotherapy for Substance Abuse Treatment, Psychoeducation (ICD-10-PCS; 2018-11-22)
PROC: HZ46ZZZ Group Counseling for Substance Abuse Treatment, Psychoeducation (ICD-10-PCS; 2018-11-22)
PROC: GZ58ZZZ Individual Psychotherapy, Cognitive-Behavioral (ICD-10-PCS; 2018-11-22)
PROC: GZ56ZZZ Individual Psychotherapy, Supportive (ICD-10-PCS; 2018-11-22)
DX: F33.2 Major depressive disorder, recurrent severe without psychotic features (principal); F14.20 Cocaine dependence, uncomplicated; R45.851 Suicidal ideations; F10.230 Alcohol dependence with withdrawal, uncomplicated; Y90.0 Blood alcohol level of less than 20 mg/100 ml; F41.9 Anxiety disorder, unspecified; K29.70 Gastritis, unspecified, without bleeding; K44.9 Diaphragmatic hernia without obstruction or gangrene

== ENCOUNTER 2019-03-12 07:26 | Day surgery (SDC) | payer OTHER ==
[2019-03-12 07:51] VITALS: BMI 26.3
[2019-03-12 08:06] VITALS: RESP 18
[2019-03-12] MEDS ORDERED: ceFAZolin 1 gm in NS 1 GM/100 ML BAG IVPB ONE ×2 (09:36→09:47)
[2019-03-12] MEDS ORDERED: Midazolam 2 MG/2 ML VIAL ONE (10:01)
[2019-03-12] MEDS ORDERED: Propofol 10 mg/ml Inj (20 ML) ONE (10:02)
[2019-03-12] MEDS ORDERED: ePHEDrine 50 mg/ml Inj ONE (10:27)
[2019-03-12] MEDS ORDERED: Oxycodone/Acetaminophen 5/325 mg Tab PO PRN (11:27)
--- NOTE | 2019-03-12 11:27 | PCM.SURG1 ---
Surgeon's Initial Post Op Note - Surgeon's Notes Surgeon: Dr. Beach Lap Cutter: Dr. Potts Type of Anesthesia: General LMA Pre-Operative Diagnosis: right inguinal hernia Operative Findings: indirect inguinal hernia Post-Operative Diagnosis: right inguinal hernia Operation Performed: right inguinal hernia repair with mesh Specimen/Specimens Removed: hernia sac Estimated Blood Loss: EBL {In ML}: 10 Blood Products Given: N/A Drains Used: No Drains Post-Op Condition: Good Date of Surgery/Procedure: 03/12/19 Time of Surgery/Procedure: 11:27
[2019-03-12] MEDS: HYDROmorphone 0.5 mg/0.5 ml ISec ONE ×2 (11:44→11:45)
[2019-03-12] MEDS: HYDROmorphone 0.5 mg/0.5 ml ISec IVP PRN ×5 (12:00→13:08)
[2019-03-12 15:08] VITALS: BP 126/82; PULSE 88; TEMP 97.8; O2SAT 97
--- NOTE | 2019-03-14 04:31 | OP ---
PROCEDURE DATE: 03/12/2019 PREOPERATIVE DIAGNOSIS: Right inguinal hernia. POSTOPERATIVE DIAGNOSIS: Right indirect inguinal hernia. PROCEDURE PERFORMED: Repair of right inguinal hernia with Prolene mesh. PROCEDURE IN DETAIL: After informed consent, the risks and benefits of the procedure were explained to the patient. The patient was brought into the operative suite, prepped and draped in a normal sterile fashion. A time-out was had identifying correct patient, procedure, and site of the operation. The right inguinal ligament was identified from the pubic tubercle to the ASIS. Approximately two fingerbreadths above the pubic tubercle, a transverse incision was made using a #10 blade scalpel. The incision was approximately 4 cm in length. Dissection was then carried down using electrocautery dissection through Scarper's fascia maintaining hemostasis. The external oblique was then encountered and identified and blunt dissection was further used to continue cleaning of the external oblique. The external oblique was then incised in the length of its fibers with a 15 blade scalpel. Metzenbaum scissors were then used to extend the incision in both directions opening up the external oblique down to the external ring. The external oblique was then grasped on both sides Mosquito clamp. The cord and cord structures as well as the hernia sac were freed up circumferentially and a Jessie drain was placed around it. Next, the hernia sac was identified and the anterior medial portion of the hernia sac was stripped down and grasped with two hemostats. Metzenbaum scissors were then used to open the hernia sac and the hernia sac was explored. There were multiple loops of small bowel within the hernia sac which were easily reduced back up into the abdomen. The hernia sac was suture ligated at its base and transected with 0 Vicryl suture ligate was used to ligate the hernia sac at its base. Metzenbaum scissors were used to cut the hernia sac and was sent off as specimen. Next, attention was made by placing a plug into the indirect hernia defect and this mesh was then sutured to the transversalis fascia using a 2-0 Prolene suture. Attention was then made by placing the Prolene mesh to cover the floor. The mesh was sutured to the pubic tubercle medially along the ilioinguinal ligament inferiorly and along the conjoined tendons superiorly making a slit for the cord and cord structures. Attention was made to salvaging the ilioinguinal nerve which was left above the repair of the mesh and below the external oblique once closed and appeared to be intact. The external oblique was then closed over the roof with a running 0 Vicryl suture to recreate the external ring. Scarper's fascia was then approximated with interrupted 3-0 Vicryl sutures, and the skin was then closed with a running subcuticular 4-0 Monocryl suture. Dermabond glue was applied over the skin. The patient tolerated the procedure well and was transferred to PACU in good and stable condition. At the end of the surgery, all counts of needles, instruments, and sponges were correct. SPECIMEN: Hernia sac. ESTIMATED BLOOD LOSS: Approximately 10 mL. COMPLICATIONS: None. Austin Potts DO Pascual Beach MD ADAM
== END 2019-03-12 15:10 | disposition home or self-care (01) ==
LOC: C.SDS 07:26
PROVIDERS: ATTEND Specialist
DX: K40.90 Unilateral inguinal hernia, without obstruction or gangrene, not specified as recurrent (principal); I10 Essential (primary) hypertension
CPT/HCPCS: 49505; 88302; C1781; J0690; J1170; J2250; J2704; J3010